=== PATIENT | male | born 1980 | race Caucasian/White ===

== ENCOUNTER 2018-08-31 09:07 | Outpatient (REF) | payer BC, SELFPAY ==
--- NOTE | 2018-08-31 08:25 | SKI_PTH ---
PATIENT: JOANNE VALENTE LOC: [facility] U#:[id number] AGE/SX: 38/M ROOM: RE08/31/[address]: Michael Scott : 1980 BED: DIS: 08/31/2018 SPEC #: [id number] RECD: 09/01/18 12:52 STATUS: KATYA REQ #: [id number] BHAVIK: 08/31/18 08:[address]: Michael Scott DEPT: Surgical Specimen RECD BY: Destiny Solis ENTERED: 09/01/18 12:52 SP TYPE: ALMITA BANKS DR: Unknown,Unknown Tissues: 1 - SKIN BIOPSY(SHAVE/PUNCH) Procedures: SKIN LEVEL 4 Comments: [id number]
== END 2018-08-31 09:27 ==
LOC: NCHCN 09:07
PROVIDERS: Visit Provider Internal Medicine
DX: D22.5 Melanocytic nevi of trunk (principal)
CPT/HCPCS: 88305